=== PATIENT | male | born 2000 | race Caucasian/White ===

== ENCOUNTER 2021-05-07 18:41 | Emergency (ER) | payer BC ==
[~2021-05-07] VITALS: Ht 172.7 cm; Wt 70.5 kg
[2021-05-07] MEDS ORDERED: DIVALPROEX SOD500 M2 PO (18:54)
[2021-05-07 20:05] LABS: BASO # 0.06 K/mm3 (0.02-0.10); EOS # 0.44 K/mm3 (0.04-0.40); HEMATOCRIT 47.2 % (42.0-52.0); HEMOGLOBIN 16.3 g/dL (13.5-18.0); LYMPH# 1.98 K/mm3 (1.50-4.00); MEAN CELL VOLUME 88 fl (78-100); MEAN CORPUSCULAR HEMOGLOBIN 30 pg (27-31); MEAN CORPUSCULAR HGB CONC 35 g/dL (33-37); MONO # 0.82 K/mm3 (0.20-0.80); NEU # 4.03 K/mm3 (1.40-6.50); PLATELET COUNT 313 K/mm3 (130-400); RED BLOOD COUNT 5.38 M/mm3 (4.20-5.60); RED CELL DISTRIBUTION WIDTH 13.5 % (11.5-14.5); WHITE BLOOD COUNT 7.3 K/mm3 (4.8-10.8)
[2021-05-07 20:44] VITALS: BP 127/81
== END 2021-05-07 20:44 | disposition home or self-care (01) ==
LOC: ED 18:41
PROVIDERS: Family Medicine
DX: R04.2 Hemoptysis (principal); R05.9 Cough, unspecified; F17.210 Nicotine dependence, cigarettes, uncomplicated; G40.909 Epilepsy, unspecified, not intractable, without status epilepticus; Z79.899 Other long term (current) drug therapy

== ENCOUNTER 2021-06-10 14:58 | Emergency (ER) | payer BC ==
[~2021-06-10 14:58] MED LIST: DIVALPROEX SOD500 M2 PO
[2021-06-10] MEDS ORDERED: CYCLOBENZAPRINE10 M1 PO (16:21)
[2021-06-10 16:39] VITALS: BP 120/77
== END 2021-06-10 16:40 | disposition home or self-care (01) ==
LOC: ED 14:58
DX: S29.012A Strain of muscle and tendon of back wall of thorax, initial encounter (principal); R56.9 Unspecified convulsions; F17.210 Nicotine dependence, cigarettes, uncomplicated
CPT/HCPCS: J1885; J2360